=== PATIENT | male | born 1985 | race Caucasian/White ===

== ENCOUNTER 2016-12-19 21:29 | Emergency (ER) | payer BC ==
[~2016-12-19] VITALS: Ht 182.9 cm; Wt 81.6 kg
[2016-12-19] MEDS ORDERED: LORA1TAB PO (21:45)
[2016-12-19] MEDS ORDERED: SERT100T8 PO (21:45)
[2016-12-19] MEDS ORDERED: FLUT16SP22 NSEACH (21:45)
[2016-12-19] MEDS ORDERED: LORazepam INJ 2 MG/ML (ATIVAN) VIAL IVP ONE (21:45)
[2016-12-19] MEDS ORDERED: OMEP40CA36 PO (21:45)
[2016-12-19] MEDS ORDERED: LORA10TA7 PO (21:45)
[2016-12-19] MEDS ORDERED: RANI300C PO (21:45)
[2016-12-19 21:47] LABS: BASOPHILS % (AUTO) 1 % (0-10); EOSINOPHILS # (AUTO) 0.2 10^3/uL (0.0-0.3); EOSINOPHILS % (AUTO) 3 % (0-10); LYMPHOCYTES # (AUTO) 1.7 X 10^3 (1.0-4.0); LYMPHOCYTES % (AUTO) 28 % (12-44); MEAN CORPUSCULAR HEMOGLOBIN 29 PG (25-34); MEAN CORPUSCULAR HGB CONC 36 G/DL (32-36); MEAN CORPUSCULAR VOLUME 81 FL (80-99); MEAN PLATELET VOLUME 9.8 FL (7.4-10.4); MONOCYTES # (AUTO) 0.6 X 10^3 (0.0-1.0); MONOCYTES % (AUTO) 10 % (0-12); NEUTROPHILS # (AUTO) 3.6 X 10^3 (1.8-7.8); NEUTROPHILS % (AUTO) 58 % (42-75); PLATELET COUNT 169 10^3/uL (130-400); RED BLOOD COUNT 5.83 10^6/uL (4.35-5.85); RED CELL DISTRIBUTION WIDTH 13.1 % (10.0-14.5); WHITE BLOOD COUNT 6.2 10^3/uL (4.3-11.0)
--- NOTE | 2016-12-19 21:55 | ED General ---
General Chief Complaint: Respiratory Problems Stated Complaint: HIGH BLOOD PRESSURE/HIGH HEART RATE/DIZZINESS Nursing Triage Note: pt took 2 tramadol last night at approx 0200. he began feeling dizzy with heart racing et dizziness. recently had a reaction to bactrim. he is taking those meds for tooth pain. Nursing Sepsis Screen: No Definite Risk Source of Information: Patient Exam Limitations: No Limitations History of Present Illness Time Seen by Provider: 21:54 Initial Comments To ER with reports of high blood pressure, palpitations, heart racing, dizziness. This began about 2 a.m. last night when he took 2 tramadol for dental pain. He is currently on Zoloft 100 mg daily. Denies fevers or chills. He also feels anxious. Yet on the way Timing/Duration: 12-24 Hours Severity: Moderate Associated Systoms: Nausea/Vomiting Allergies and Home Medications Allergies Coded Allergies: acetazolamide (Unverified Adverse Reaction, Unknown, 12/19/16) risperidone (Unverified Adverse Reaction, Unknown, 12/19/16) sulfamethoxazole (Unverified Adverse Reaction, Unknown, 12/19/16) trimethoprim (Unverified Adverse Reaction, Unknown, 12/19/16) Home Medications Fluticasone Propionate 16 Gm [place].susp, 2 SPR NSEACH DAILY, #16 (Reported) Loratadine 10 Mg Tablet, 10 MG PO DAILY, (Reported) Lorazepam 1 Mg Tablet, 0.5 MG PO PRN, #30 (Reported) Omeprazole 40 Mg Capsule.dr, 40 MG PO DAILY, #30 (Reported) Ranitidine HCl 300 Mg Capsule, 300 MG PO BID PRN for reflux, #60 (Reported) Sertraline HCl 100 Mg Tablet, 100 MG PO DAILY, #30 (Reported) Constitutional: see HPI EENTM: see HPI Respiratory: see HPI Cardiovascular: no symptoms reported, palpitations Genitourinary: no symptoms reported Musculoskeletal: no symptoms reported Skin: no symptoms reported Psychiatric/Neurological: See HPI, Anxiety Hematologic/Lymphatic: No Symptoms Reported Immunological/Allergic: no symptoms reported Past Hhlwxlw-Glpfts-Hcjeji Hx Patient Social History Alcohol Use: Denies Use Recreational Drug Use: No Smoking Status: Never a Smoker Recent Foreign Travel: No Contact w/Someone Who Travel: No Recent Infectious Disease Expo: No Recent Hopitalizations: No Seasonal Allergies Seasonal Allergies: Yes Gastrointestinal Gastrointestinal Disorders: Gastroesophageal Reflux, Hiatal Hernia, Irritable Bowel Psychosocial Behavioral Health Disorders: Anxiety, Depression Physical Exam Vital Signs Vital Sign - Last 12Hours 12/19/16 21:36 Temp 98.4 Pulse 102 Resp 24 B/P (MAP) 176/114 Capillary Refill : Less Than 3 Seconds General Appearance: No Apparent Distress, WD/WN, Anxious Eyes: Bilateral Eye EOMI, Bilateral Eye Normal Inspection, Bilateral Eye PERRL HEENT: PERRL/EOMI, TMs Normal Neck: Full Range of Motion, Normal Inspection Respiratory: No Accessory Muscle Use, No Respiratory Distress Cardiovascular: Normal Peripheral Pulses, Tachycardia Gastrointestinal: Normal Bowel Sounds, Non Tender, Soft Neurologic/Psychiatric: Alert, Oriented x3, No Motor/Sensory Deficits, Other ( there is no tremor. There isbrisk bilateral patellar reflex. However patient states "I've always had fast reflexes") Skin: Normal Color, Warm/Dry Progress/Results/Core Measures Results/Orders Lab Results Laboratory Tests Test 12/19/16 21:37 12/19/16 22:12 Range/Units White Blood Count 6.2 4.3-11.0 10^3/uL Red Blood Count 5.83 4.35-5.85 10^6/uL Hemoglobin 17.0 13.3-17.7 G/DL Hematocrit 47 40-54 % Mean Corpuscular Volume 81 80-99 FL Mean Corpuscular Hemoglobin 29 25-34 PG Mean Corpuscular Hemoglobin Concent 36 32-36 G/DL Red Cell Distribution Width 13.1 10.0-14.5 % Platelet Count 169 130-400 10^3/uL Mean Platelet Volume 9.8 7.4-10.4 FL Neutrophils (%) (Auto) 58 42-75 % Lymphocytes (%) (Auto) 28 12-44 % Monocytes (%) (Auto) 10 0-12 % Eosinophils (%) (Auto) 3 0-10 % Basophils (%) (Auto) 1 0-10 % Neutrophils # (Auto) 3.6 1.8-7.8 X 10^3 Lymphocytes # (Auto) 1.7 1.0-4.0 X 10^3 Monocytes # (Auto) 0.6 0.0-1.0 X 10^3 Eosinophils # (Auto) 0.2 0.0-0.3 10^3/uL Basophils # (Auto) 0.0 0.0-0.1 10^3/uL Sodium Level 139 135-145 MMOL/L Potassium Level 3.7 3.6-5.0 MMOL/L Chloride Level 103 98-107 MMOL/L Carbon Dioxide Level 23 21-32 MMOL/L Anion Gap 13 5-14 MMOL/L Blood Urea Nitrogen 11 7-18 MG/DL Creatinine 0.99 0.60-1.30 MG/DL Estimat Glomerular Filtration Rate > 60 BUN/Creatinine Ratio 11 Glucose Level 112 H 70-105 MG/DL Calcium Level 9.7 8.5-10.1 MG/DL Total Bilirubin 0.7 0.1-1.0 MG/DL Aspartate Amino Transf (AST/SGOT) 18 5-34 U/L Alanine Aminotransferase (ALT/SGPT) 16 0-55 U/L Alkaline Phosphatase 87 40-136 U/L Total Protein 7.9 6.4-8.2 GM/DL Albumin 4.8 H 3.2-4.5 GM/DL Urine Color YELLOW Urine Clarity CLEAR Urine pH 6 5-9 Urine Specific [place] 1.010 L 1.016-1.022 Urine Protein NEGATIVE NEGATIVE Urine Glucose (UA) NEGATIVE NEGATIVE Urine Ketones NEGATIVE NEGATIVE Urine Nitrite NEGATIVE NEGATIVE Urine Bilirubin NEGATIVE NEGATIVE Urine Urobilinogen NORMAL NORMAL MG/DL Urine Leukocyte Esterase NEGATIVE NEGATIVE Urine RBC (Auto) NEGATIVE NEGATIVE Urine RBC NONE /HPF Urine WBC 0-2 /HPF Urine Crystals NONE /LPF Urine Bacteria NEGATIVE /HPF Urine Casts NONE /LPF Urine Mucus NEGATIVE /LPF Urine Culture Indicated NO My Orders Orders - KATT ZAFAR APRN Cbc With Automated Diff (12/19/16 21:41) Comprehensive Metabolic Panel (12/19/16 21:41) Ua Culture If Indicated (12/19/16 21:41) Saline Lock/Iv-Start (12/19/16 21:41) Lorazepam Injection (Ativan Injection) (12/19/16 21:45) Metoprolol Tartrate Injection (Lopressor (12/19/16 22:00) Medications Given in ED Current Medications Medications Dose Ordered Sig/Ko Route Start Time Stop Time Status Last Admin Dose Admin Lorazepam 0.5 mg ONCE ONCE IVP 12/19/16 21:45 12/19/16 21:46 DC 12/19/16 22:07 0.5 MG Vital Signs/I&O Vital Sign - Last 12Hours 12/19/16 21:36 Temp 98.4 Pulse 102 Resp 24 B/P (MAP) 176/114 Blood Pressure Mean: 134 Departure Communication Progress Notes 2311-patient is very anxious. He feels much better at this time. On arrival heart rate 113, blood pressure 170/100. Patient was given 0.5 mg of IV lorazepam and he states that he feels better at this time. Heart rate is 90 sinus, a pressure 134/74. He does not have tremor, diaphoresis, myoclonus, hyperreflexia. Mental status is normal. By definition he does not have serotonin syndrome in the acute onset of this would exclude neuroleptic malignant syndrome from the differential. Impression Impression: Primary Impression: Medication adverse effect Additional Impression: Anxiety Disposition: 01 HOME, SELF-CARE Condition: Stable Departure-Patient Inst. Decision time for Depature: 23:12 Referrals: HEMANT ARMSTRONG DO (PCP/Family) Primary Care Physician Patient Instructions: NO INSTRUCTIONS GIVEN Add. Discharge Instructions: 1. Return to ER for any concerns 2. Follow-up with Dr. Armstrong next week 3. All discharge instructions reviewed with patient and/or family. Voiced understanding. Copy Copies To 1: HEMANT ARMSTRONG PETER J APRN Dec 19, 2016 21:55
[2016-12-19] MEDS ORDERED: meTOprolol 5 MG/5 ML (LOPRESSOR) VIAL IV ONE (22:00)
[2016-12-19 22:01] LABS: ALANINE AMINOTRANSFERASE 16 U/L (0-55); ALBUMIN 4.8 GM/DL (3.2-4.5); ANION GAP 13 MMOL/L (5-14); ASPARTATE AMINO TRANSFERASE 18 U/L (5-34); BILIRUBIN,TOTAL 0.7 MG/DL (0.1-1.0); BLOOD UREA NITROGEN 11 MG/DL (7-18); BUN/CREATININE RATIO 11; CALCIUM 9.7 MG/DL (8.5-10.1); CARBON DIOXIDE 23 MMOL/L (21-32); CHLORIDE 103 MMOL/L (98-107); CREATININE SERUM 0.99 MG/DL (0.60-1.30); GFR ESTIMATED > 60; GLUCOSE 112 MG/DL (70-105); POTASSIUM 3.7 MMOL/L (3.6-5.0); SODIUM 139 MMOL/L (135-145); TOTAL PROTEIN 7.9 GM/DL (6.4-8.2)
[2016-12-19 22:26] LABS: BILIRUBIN,URINE NEGATIVE (NEGATIVE); KETONES,URINE NEGATIVE (NEGATIVE); LEUKOCYTE ESTERASE ,URINE NEGATIVE (NEGATIVE); NITRITE,URINE NEGATIVE (NEGATIVE); PH,URINE 6 (5-9); PROTEIN,URINE NEGATIVE (NEGATIVE); UROBILINOGEN,URINE NORMAL (NORMAL)
[2016-12-19 22:54] LABS: WBC,URINE 0-2 /HPF
[2016-12-19 23:20] VITALS: BP 132/79
--- OUTSIDE RECORDS SUMMARY | 2016-12-20 00:37 | XMS REPORT ---
Author Author [facility] Organization [facility] Address Unknown Phone Unavailable Care Team Providers Care Health Education Assistant Name Role Phone Devorah Caceres PCP Encounter [facility] [id number] Date(s): 12/14/16 - [facility]/15/16 [facility] [address] [address] Discharge Disposition: Home Attending Physician: Francesca Matta APRN Admitting Physician: Francesca Matta APRN Referring Physician: Devorah Caceres DO Non-Staff Vital Signs No data available for this section Problem List Condition Effective Dates Status Health Status Informant Anxiety Active disorder(Confirmed) Allergies, Adverse Reactions, Alerts Substance Reaction Severity Status acetaZOLAMIDE Active risperidone Drug-induced dystonia Active Medications No Known Medications Results No data available for this section Immunizations No data available for this section Procedures No data available for this section Social History No data available for this section Assessment and Plan No data available for this section
--- OUTSIDE RECORDS SUMMARY | 2016-12-20 00:37 | XMS REPORT | Continuity of Care Document ---
Author Author [employer] Organization [employer] Address Unknown Phone Unavailable Care Team Providers Care Secretary Book Keeper Name Role Phone [employer] Unavailable Unavailable Problems Problem Status Onset Date Classification Date Reported Comments Source Anxiety disorder (disorder) Active Problem 01/18/2014 [facility], [facility]. Medications Medication Details Route Status Patient Instructions Ordering Provider Order Date Source No Known Medications No known medications Active [facility] Allergies, Adverse Reactions, Alerts Substance Category Reaction Severity Reaction type Status Date Reported Comments Source Acetazolamide Assertion Drug allergy [facility], [facility]. Risperidone Assertion Drug- induced dystonia Drug allergy [facility] Immunizations Immunization Date Given Site Status Last Updated Comments Source No data available for this section No data available for this section [facility], [facility]. Results Vital Signs Encounters Location Location Details Encounter Type Encounter Number Reason For Visit Attending Provider ADM Date DC Date Status Source Urgent Care [facility] [id number] . URGENT CARE TAFT 01/12/2014 01/13/2014 [facility] [id number] . URGENT CARE TAFT 01/14/2014 01/15/2014 [facility], [facility]. Emergency [id number] Francesca Matta 12/14/2016 12/16/2016 [facility] Procedures Procedure Code Date Perfomer Comments Source No data available for this section [facility]. Plan of Care Social History Assessment and Plan Family History Value Date Source Advance Directives Order Name Results Value Date Source
--- OUTSIDE RECORDS SUMMARY | 2016-12-20 00:38 | XMS REPORT ---
Author Author RAIZA PURVIS Organization [employer] Address Unknown Phone Unavailable Care Team Providers Care Nuclear Pharmacist Name Role Phone RAIZA PURVIS CP Unavailable Allergies, Adverse Reactions, Alerts Substance Reaction Event Type Risperdal Info Not Available Drug Allergy Problems Problem Type Condition Code Onset Dates Condition Status Assessment Exposure to head lice Z20.7 Active Assessment History of back pain Z87.39 Active Problem Need for prophylactic vaccination and inoculation, Influenza V04.81 Active Medications Medication Code System Code Instructions Start Date End Date Status Dosage Ranitidine HCl [facility] [address]-40 300 MG Orally Once a day 1 capsule as needed Omeprazole [facility] [address]-51 40 MG Orally Once a day 1 capsule Claritin [facility] [address]-59 10 MG Orally Once a day 1 tablet Flonase Allergy Relief [facility] [address]-17 50 MCG/ACT Nasally Once a day 1 spray in each nostril Zoloft [facility] [address]-82 100 MG Orally Once a day 1 tablet Procedures Procedure Coding System Code Date Office Visit, Est Pt., Level 3 CPT-4 35475 December 28, 2015 Vital Signs Date/Time: December 28, 2015 Cardiac Monitoring Heart Rate 76 bpm Weight 189.4 lbs Height 72 in Blood Pressure Diastolic 84 mmHg Blood Pressure Systolic 120 mmHg Results No Known Results Summary Purpose [employer] Submission
--- OUTSIDE RECORDS SUMMARY | 2016-12-20 00:38 | XMS REPORT | Clinical Summary ---
Author Author User, [employer] Organization Devorah Caceres DO, FACP Address Unknown Phone Allergies, Adverse Reactions, Alerts Allergy Name Reaction Description Start Date Severity Status Provider ACETAZOLAMIDE tingling, shaking placed on that for prevention altitude sickness Critical Active Devorah Caceres RISPERDAL dystonic reaction in 7th grade given for depression Critical Active Devorah Caceres Conditions or Problems Problem Name Problem Code Onset Date Status Entry Date Provider Comment Standard Description Annotate DEPRESSION 311 Active Devorah Caceres Depressive disorder, not elsewhere classified ANXIETY 300.00 Active Devorah Caceres Anxiety state, unspecified GERD 530.81 Active Devorah Caceres Esophageal reflux RHINITIS, ALLERGIC NOS 477.9 Active Devorah Caceres Allergic rhinitis, cause unspecified HYPERGLYCEMIA, MILD 790.6 Active Devorah Caceres Other abnormal blood chemistry HEALTH SCREENING V70.0 Active Devorah Caceres Routine general medical examination at a health care facility PALPITATIONS, RECURRENT 785.1 Active Devorah Caceres Palpitations Medication List Medication Instructions Start Date Stop Date Generic Name NDC Status Provider Patient Instruction VITAMIN B-12 1000 MCG TABS 1 PO daily CYANOCOBALAMIN 22301228303 Active Devorah Caceres ZANTAC 150 MG TABS 2 PO BID RANITIDINE HCL 74587396619 Active Devorah Caceres DRYSOL 20 % SOLN APPLY NEEDED TO UNDERARMS ALUMINUM CHLORIDE 47935679372 Active Devorah Caceres FLUTICASONE PROPIONATE 50 MCG/ACT SUSP 2 SPRAYS EACH NOSTRI DAILY FLUTICASONE PROPIONATE 97347431295 Active Devorah Caceres CLARITIN 10 MG TABS 1 PO DAILY PRN LORATADINE 54868843880 Active Devorah Caceres PRILOSEC 40 MG CPDR 1 PO DAILY OMEPRAZOLE 98302789887 Active Devorah Caceres ATIVAN 1 MG TABS 1 PO DAILY PRN FOR ANXIETY LORAZEPAM 81976919252 Active Devorah Caceres BUSPIRONE HCL 10 MG TABS 1 PO BID BUSPIRONE HCL 25239191637 Active Devorah Caceres ZOLOFT 100 MG TABS 1 AND A HALF TABS DAILY TO TOTAL 150MG SERTRALINE HCL 90154991012 Active Devorah Caceres Vital Signs Date Name Value Unit Range Description blood pressure, diastolic - 8462-4 78 mm[Hg] BP burden blood pressure, systolic - 8480-6 106 mm[Hg] BP sys pulse rate E&M - 8867-4 54 /min Heart rate respiratory rate E&M - 9279-1 14 /min Resp rate weight E&M - 3141-9 180 [lb_av] Weight Measured blood pressure, diastolic - 8462-4 68 mm[Hg] BP burden blood pressure, systolic - 8480-6 118 mm[Hg] BP sys height E&M - 8302-2 72 [in_us] Bdy height pulse rate E&M - 8867-4 80 /min Heart rate respiratory rate E&M - 9279-1 14 /min Resp rate weight E&M - 3141-9 175 [lb_av] Weight Measured Diagnostic Results Date Name Value Unit Range Description Clinical Lists Update: CBC,CMP,FLP,TSH,HGA1C,FERRITIN - Chemistry Estimated Glomerular Filtration Rate (calc) 97 mL/min/1.73m2 glucose, plasma fasting 104 mg/dL albumin, serum 4.7 g/dL alkaline phosphatase, serum 84 U/L urea nitrogen, blood 15 mg/dL calcium, serum 9.4 mg/dL chloride, serum 102 mmol/L cholesterol, serum 192 mg/dL cholesterol/HDL ratio, serum, percent 4.6 anion gap, serum 12 sodium, serum 139 mmol/L triglyceride, serum, fasting 139 mg/dL bilirubin, serum, total 0.6 mg/dL alanine aminotransferase (SGPT), serum 20 U/L aspartate aminotransferase (SGOT), serum 17 U/L protein, total, serum 7.2 g/dL potassium, serum 3.8 mmol/L LDL cholesterol, serum 122 mg/dL thyroid stimulating hormone, serum 1.03 u[iU]/mL hemoglobin A1C, blood, as % of total hemoglobin 5.2 % HDL cholesterol, serum 42.0 mg/dL ferritin, serum 57.8 ng/mL creatinine, serum 1.0 mg/dL carbon dioxide, venous blood 29.0 mmol/L Clinical Lists Update: CBC,CMP,FLP,TSH,HGA1C,FERRITIN - Hematology mean corpuscular volume, RBC 89 fL red blood cell distribution width 13.3 % hemoglobin, blood 16.6 g/dL platelet count 176 10*3/mm3 erythrocyte (RBC) count 5.63 10*6/mm3 leukocyte count, blood 5.6 10*3/mm3 hematocrit, blood 50 % Encounters Code Encounter Date Provider Facility CPT-49589 Ofc Vst, Est Level IV 16:51:07 CDT Devorah Delicia [facility] Procedures Code Procedure Name Date Entry Date Standard Description CPT-02789 Manju, Bo, (18-39) 19:45:17 RN TELEMETRY
--- OUTSIDE RECORDS SUMMARY | 2016-12-20 00:38 | XMS REPORT | Clinical Summary ---
Author Author User, [employer] Organization Devorah Caceres DO, FACP Address Unknown [...] 1000 MCG TABS 1 PO daily CYANOCOBALAMIN 95697040716 Active Devorah Caceres ZANTAC 150 MG TABS 2 PO BID RANITIDINE HCL 07890343877 Active Devorah Caceres DRYSOL 20 % SOLN APPLY NEEDED TO UNDERARMS ALUMINUM CHLORIDE 98208980187 Active Devorah Caceres FLUTICASONE PROPIONATE 50 MCG/ACT SUSP 2 SPRAYS EACH NOSTRI DAILY FLUTICASONE PROPIONATE 08247301970 Active Devorah Caceres CLARITIN 10 MG TABS 1 PO DAILY PRN LORATADINE 46382256398 Active Devorah Caceres PRILOSEC 40 MG CPDR 1 PO DAILY OMEPRAZOLE 61944813755 Active Devorah Caceres ATIVAN 1 MG TABS 1 PO DAILY PRN FOR ANXIETY LORAZEPAM 76299202489 Active Devorah Caceres BUSPIRONE HCL 10 MG TABS 1 PO BID BUSPIRONE HCL 37798441687 Active Devorah Caceres ZOLOFT 100 MG TABS 1 AND A HALF TABS DAILY TO TOTAL 150MG SERTRALINE HCL 97999865111 Active Devorah Caceres Vital Signs Date Name [...] % Encounters Code Encounter Date Provider Facility CPT-70556 Ofc Vst, Est Level IV 16:51:07 CDT Devorah Delicia [facility] Procedures Code Procedure Name Date Entry Date Standard Description CPT-40339 Manju, Bo, (18-39) 19:45:17 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
--- OUTSIDE RECORDS SUMMARY | 2016-12-20 00:38 | XMS REPORT | Clinical Summary ---
Author Author User, [employer] Organization Devorah Caceres DO, FACP Address Unknown [...] medical examination at a health care facility Medication List Medication Instructions Start Date Stop Date Generic Name NDC Status Provider Patient Instruction VITAMIN B-12 1000 MCG TABS 1 PO daily CYANOCOBALAMIN 25073103094 Active Devorah Caceres ZANTAC 150 MG TABS 2 PO BID RANITIDINE HCL 70571567802 Active Devorah Caceres DRYSOL 20 % SOLN APPLY NEEDED TO UNDERARMS ALUMINUM CHLORIDE 64069508437 Active Devorah Caceres FLUTICASONE PROPIONATE 50 MCG/ACT SUSP 2 SPRAYS EACH NOSTRI DAILY FLUTICASONE PROPIONATE 27266139034 Active Devorah Caceres CLARITIN 10 MG TABS 1 PO DAILY PRN LORATADINE 42143214572 Active Devorah Caceres PRILOSEC 40 MG CPDR 1 PO DAILY OMEPRAZOLE 38197526310 Active Devorah Caceres ATIVAN 1 MG TABS 1 PO DAILY PRN FOR ANXIETY LORAZEPAM 52131323480 Active Devorah Caceres BUSPIRONE HCL 10 MG TABS 1 PO BID BUSPIRONE HCL 64234575726 Active Devorah Caceres ZOLOFT 100 MG TABS 1 AND A HALF TABS DAILY TO TOTAL 150MG SERTRALINE HCL 02139583593 Active Devorah Caceres Vital Signs Date Name Value Unit Range Description blood pressure, diastolic - 8462-4 68 mm[Hg] [...] blood 5.6 10*3/mm3 hematocrit, blood 50 % Procedures Code Procedure Name Date Entry Date Standard Description CPT-11322 Bo Nunes, (18-39) 19:45:17 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
--- OUTSIDE RECORDS SUMMARY | 2016-12-20 00:38 | XMS REPORT | Clinical Summary ---
Author Author User, [employer] Organization Devorah Caceres DO, FACP Address Unknown [...] 1000 MCG TABS 1 PO daily CYANOCOBALAMIN 71968451501 Active Devorah Caceres ZANTAC 150 MG TABS 2 PO BID RANITIDINE HCL 62081122611 Active Devorah Caceres DRYSOL 20 % SOLN APPLY NEEDED TO UNDERARMS ALUMINUM CHLORIDE 49323637850 Active Devorah Caceres FLUTICASONE PROPIONATE 50 MCG/ACT SUSP 2 SPRAYS EACH NOSTRI DAILY FLUTICASONE PROPIONATE 15773369520 Active Devorah Caceres CLARITIN 10 MG TABS 1 PO DAILY PRN LORATADINE 06953308636 Active Devorah Caceres PRILOSEC 40 MG CPDR 1 PO DAILY OMEPRAZOLE 94777391256 Active Devorah Caceres ATIVAN 1 MG TABS 1 PO DAILY PRN FOR ANXIETY LORAZEPAM 01592130558 Active Devorah Caceres BUSPIRONE HCL 10 MG TABS 1 PO BID BUSPIRONE HCL 13599882004 Active Devorah Caceres ZOLOFT 100 MG TABS 1 AND A HALF TABS DAILY TO TOTAL 150MG SERTRALINE HCL 68686334721 Active Devorah Caceres Vital Signs Date Name [...] Procedure Name Date Entry Date Standard Description CPT-45843 Bo Nunes, (18-39) 19:45:17 COBBLER SOLE
--- OUTSIDE RECORDS SUMMARY | 2016-12-20 00:38 | XMS REPORT | Continuity of Care Document ---
Author Author [facility] Address Unknown Phone Unavailable Allergies Medications Problems Date Dx Coded Attending Type Code Diagnosis Diagnosed By 04/21/2014 SHAQUILLE BECKWITH APRN V04.81 FLU SHOT Procedures Results Encounters ACCT No. Visit Date/Time Discharge Status Pt. Type Provider Facility Loc./Unit Complaint [id number] 04/21/2014 13:03:00 04/21/2014 23: 59:59 CLS Outpatient SHAQUILLE BECKWITH APRN
--- OUTSIDE RECORDS SUMMARY | 2016-12-20 00:39 | XMS REPORT | Clinical Summary ---
Author Author User, [employer] Organization Devorah Caceres DO, FACP Address Unknown [...] Caceres Anxiety state, unspecified GERD 530.81 Active Devorha Caceres Esophageal reflux RHINITIS, ALLERGIC NOS 477.9 Active Devorah Caceres Allergic rhinitis, cause unspecified HYPERGLYCEMIA, MILD 790.6 Active Devorah Caceres Other abnormal blood chemistry HEALTH SCREENING V70.0 Active Devorah Caceres Routine general medical examination at a health care facility Medication List Medication Instructions Start Date Stop Date Generic Name NDC Status Provider Patient Instruction VITAMIN B-12 1000 MCG TABS 1 PO daily CYANOCOBALAMIN 25108211971 Active Devorah Caceres ZANTAC 150 MG TABS 2 PO BID RANITIDINE HCL 42136336386 Active Devorah Caceres DRYSOL 20 % SOLN APPLY NEEDED TO UNDERARMS ALUMINUM CHLORIDE 81249065873 Active Devorah Caceres FLUTICASONE PROPIONATE 50 MCG/ACT SUSP 2 SPRAYS EACH NOSTRI DAILY FLUTICASONE PROPIONATE 14949623527 Active Devorah Caceres CLARITIN 10 MG TABS 1 PO DAILY PRN LORATADINE 21190987100 Active Devorah Caceres PRILOSEC 40 MG CPDR 1 PO DAILY OMEPRAZOLE 32108917604 Active Devorah Caceres ATIVAN 1 MG TABS 1 PO DAILY PRN FOR ANXIETY LORAZEPAM 67054259654 Active Devorah Caceres BUSPIRONE HCL 10 MG TABS 1 PO BID BUSPIRONE HCL 74681523368 Active Devorah Caceres ZOLOFT 100 MG TABS 1 AND A HALF TABS DAILY TO TOTAL 150MG SERTRALINE HCL 64781673853 Active Devorah Caceres Vital Signs Date Name [...] Procedure Name Date Entry Date Standard Description CPT-19734 Bo Nunes, (18-39) 19:45:17 CLUB CONCIERGE
--- OUTSIDE RECORDS SUMMARY | 2016-12-20 00:39 | XMS REPORT | Clinical Summary ---
Author Author User, [employer] Organization Devorah Caceres DO, FACP Address Unknown [...] 1000 MCG TABS 1 PO daily CYANOCOBALAMIN 13565202493 Active Devorah Caceres ZANTAC 150 MG TABS 2 PO BID RANITIDINE HCL 64699677517 Active Devorah Caceres DRYSOL 20 % SOLN APPLY NEEDED TO UNDERARMS ALUMINUM CHLORIDE 81277189296 Active Devorah Caceres FLUTICASONE PROPIONATE 50 MCG/ACT SUSP 2 SPRAYS EACH NOSTRI DAILY FLUTICASONE PROPIONATE 17512299953 Active Devorah Caceres CLARITIN 10 MG TABS 1 PO DAILY PRN LORATADINE 48190125910 Active Devorah Caceres PRILOSEC 40 MG CPDR 1 PO DAILY OMEPRAZOLE 93492265181 Active Devorah Caceres ATIVAN 1 MG TABS 1 PO DAILY PRN FOR ANXIETY LORAZEPAM 67896742852 Active Devorah Caceres BUSPIRONE HCL 10 MG TABS 1 PO BID BUSPIRONE HCL 61873976180 Active Devorah Caceres ZOLOFT 100 MG TABS 1 AND A HALF TABS DAILY TO TOTAL 150MG SERTRALINE HCL 35469023384 Active Devorah Caceres Vital Signs Date Name [...] Procedure Name Date Entry Date Standard Description CPT-38885 Bo Nunes, (18-39) 19:45:17 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
--- OUTSIDE RECORDS SUMMARY | 2016-12-20 00:39 | XMS REPORT | Clinical Summary ---
Author Author User, [employer] Organization Devorah Caceres DO, FACP Address Unknown [...] 1000 MCG TABS 1 PO daily CYANOCOBALAMIN 52687949956 Active Devorah Caceres ZANTAC 150 MG TABS 2 PO BID RANITIDINE HCL 66581214038 Active Devorah Caceres DRYSOL 20 % SOLN APPLY NEEDED TO UNDERARMS ALUMINUM CHLORIDE 54443215343 Active Devorah Caceres FLUTICASONE PROPIONATE 50 MCG/ACT SUSP 2 SPRAYS EACH NOSTRI DAILY FLUTICASONE PROPIONATE 65041611349 Active Devorah Caceres CLARITIN 10 MG TABS 1 PO DAILY PRN LORATADINE 63837968106 Active Devorah Caceres PRILOSEC 40 MG CPDR 1 PO DAILY OMEPRAZOLE 35225428476 Active Devorah Caceres ATIVAN 1 MG TABS 1 PO DAILY PRN FOR ANXIETY LORAZEPAM 17293010404 Active Devorah Caceres BUSPIRONE HCL 10 MG TABS 1 PO BID BUSPIRONE HCL 30160630441 Active Devorah Caceres ZOLOFT 100 MG TABS 1 AND A HALF TABS DAILY TO TOTAL 150MG SERTRALINE HCL 14866160817 Active Devorah Caceres Vital Signs Date Name [...] Procedure Name Date Entry Date Standard Description [id number] Bo Nunes, (16[birth year]) 19:45:17 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
== END 2016-12-19 23:20 | disposition home or self-care (01) ==
LOC: EDUNIT# 21:29 → ER 21:32
DX: R42 Dizziness and giddiness (principal); F41.9 Anxiety disorder, unspecified; T40.4X5A Adverse effect of other synthetic narcotics, initial encounter
CPT/HCPCS: 36415; 80053; 81000; 85025; 96374

== ENCOUNTER → 2016-12-25 | Outpatient (CLI) | payer BC ==
[~2016-12-25] MED LIST: FLUT16SP22 NSEACH; LORA10TA7 PO; LORA1TAB PO; OMEP40CA36 PO; RANI300C PO; SERT100T8 PO
--- NOTE | 2016-12-25 11:24 | Diagnostic Imaging Report ---
PROCEDURE: CT abdomen and pelvis without contrast. TECHNIQUE: Multiple contiguous axial images were obtained through the abdomen and pelvis without the use of intravenous contrast. INDICATION: Left flank pain. FINDINGS: The lung bases appear clear. The liver, the spleen, the pancreas, and the adrenal glands appear unremarkable. The gallbladder demonstrates no calcified stones or wall thickening. The abdominal aorta is normal in caliber. No para-aortic significantly enlarged lymph node is seen. The kidneys demonstrate no hydronephrosis. Pelvic calcifications appear to be along vessels with no definite urinary tract stone identified. The prostate is near the upper limits of normal in size, at 4.7 cm in transverse dimension. The appendix is normal. No bowel obstruction. There is a tiny fat-containing umbilical hernia. The osseous structures appear grossly unremarkable. IMPRESSION: Tiny fat-containing umbilical hernia. No urinary tract stones or hydronephrosis seen. Dictated by: Dictated on workstation # [id number]
== END ==
LOC: RAD 10:45
PROVIDERS: ATTEND Urology
DX: K42.9 Umbilical hernia without obstruction or gangrene (principal)
CPT/HCPCS: 74176

== ENCOUNTER 2017-01-18 13:13 | Emergency (ER) | payer BC ==
[~2017-01-18] VITALS: Ht 185.4 cm; Wt 77.1 kg
--- NOTE | 2017-01-18 14:20 | ED General ---
General Chief Complaint: General Problems/Pain Stated Complaint: DIZZINESS, LOW BP Nursing Triage Note: c/o feeling dizzy and weak. Pt conerned about possible Zyrtec complications. Nursing Sepsis Screen: No Definite Risk Source of Information: Patient Exam Limitations: No Limitations History of Present Illness Time Seen by Provider: 13:56 Initial Comments Patient presents to ER by private conveyance with very nondescript chief complaint of feeling dizzy which she describes as feeling off not being pulled to either direction not having the room spinning and not feeling near syncopal. He states that 2 days ago this started when he took a single tablet of Zyrtec and then felt, drowsy so he slept most the day. The following day he woke up and was still drowsy. He attributes his sensation to that. He didn't Zyrtec is having congestion and nasal discharge. He is not having any fevers malaise chills cough short of breath chest pain abdominal pain diarrhea or constipation. He does have irritable bowel syndrome. He also has recently been worked up with a CAT scan of his abdomen for non-descript abdominal pain. Patient states he checked his pressure at home and it was 105/60. He checked his sats on his iPhone and found it to be 92-94%. This worried him as he felt this was low. So he presented here. Allergies and Home Medications Allergies Coded Allergies: acetazolamide (Unverified Adverse Reaction, Unknown, 12/19/16) risperidone (Unverified Adverse Reaction, Unknown, 12/19/16) sulfamethoxazole (Unverified Adverse Reaction, Unknown, 12/19/16) trimethoprim (Unverified Adverse Reaction, Unknown, 12/19/16) Home Medications Fluticasone Propionate 16 Gm [place].susp, 2 SPR NSEACH DAILY, #16 (Reported) Loratadine 10 Mg Tablet, 10 MG PO DAILY, (Reported) Lorazepam 1 Mg Tablet, 0.5 MG PO PRN, #30 (Reported) Omeprazole 40 Mg Capsule.dr, 40 MG PO DAILY, #30 (Reported) Ranitidine HCl 300 Mg Capsule, 300 MG PO BID PRN for reflux, #60 (Reported) Sertraline HCl 100 Mg Tablet, 100 MG PO DAILY, #30 (Reported) Constitutional: see HPI, No chills, No diaphoresis, dizziness, No fever, malaise EENTM: nose congestion, No ear pain, No epistaxis, No eye pain Respiratory: No cough, No short of breath Cardiovascular: No chest pain, No palpitations, No syncope, No vascular heart diseas Gastrointestinal: No abdominal pain, No constipation, No diarrhea, No nausea, No vomiting Genitourinary: No discharge, No dysuria, No frequency Musculoskeletal: No back pain, No joint pain Skin: No pruritus, No rash Psychiatric/Neurological: Anxiety, Depressed, Denies Headache, Denies Numbness Past Lnaqrpk-Fvjcol-Alkmjy Hx Patient Social History Alcohol Use: Denies Use Recreational Drug Use: No Smoking Status: Never a Smoker Recent Foreign Travel: No Contact w/Someone Who Travel: No Recent Infectious Disease Expo: No Recent Hopitalizations: No Seasonal Allergies Seasonal Allergies: Yes Gastrointestinal Gastrointestinal Disorders: Gastroesophageal Reflux, Hiatal Hernia, Irritable Bowel Psychosocial Behavioral Health Disorders: Anxiety, Depression Physical Exam Vital Signs Vital Sign - Last 12Hours 01/18/17 13:35 Temp 97.5 Pulse 70 Resp 16 B/P (MAP) 142/70 O2 Delivery Room Air Capillary Refill : Less Than 3 Seconds General Appearance: No Apparent Distress, WD/WN, Anxious Eyes: Bilateral Eye EOMI, Bilateral Eye Normal Inspection, Bilateral Eye PERRL HEENT: PERRL/EOMI, Normal ENT Inspection, Pharynx Normal, TM Abnormal (R) ( mucoid effusion without bulging or retraction) Neck: Normal Inspection, Non Tender, Supple Respiratory: Chest Non Tender, Lungs Clear, Normal Breath Sounds, No Accessory Muscle Use Cardiovascular: Regular Rate, Rhythm, No Edema, No Gallop, No Murmur, Normal Peripheral Pulses Gastrointestinal: Normal Bowel Sounds, Non Tender, Soft Back: Normal Inspection, No CVA Tenderness, No Vertebral Tenderness Extremity: Normal Capillary Refill, No Pedal Edema Neurologic/Psychiatric: Alert, Oriented x3 Skin: Normal Color, Warm/Dry Lymphatic: No Adenopathy Progress/Results/Core Measures Results/Orders Vital Signs/I&O Vital Sign - Last 12Hours 01/18/17 13:35 Temp 97.5 Pulse 70 Resp 16 B/P (MAP) 142/70 O2 Delivery Room Air Blood Pressure Mean: 94 Progress Note : Time: 18:53 Progress Note Discussed at length the patient's long list of nebulous symptoms and his history of recent workup. There is no focal complaints and his dizziness does not seem to relate to vertigo nor is it popping positive for his orthostatic hypotensive vital signs. However he may explain some of his lower end of normal blood pressure and higher end of normal heart rate by being dehydrated. Offered him IV fluids which he declined. Discussed the value of doing any blood work without any focus to follow. A basic workup has been done in the recent weeks by his primary care physician and he said he would rather just follow up with his primary care physician to have this further worked up as needed. We discussed treatment of his otitis media effusion as well as drinking plenty of fluids and avoiding caffeine. I also gave good return instructions. Departure Impression Impression: Primary Impression: Fatigue Qualified Codes: R53.83 - Other fatigue Additional Impressions: Otitis media with effusion Qualified Codes: H65.91 - Unspecified nonsuppurative otitis media, right ear Dehydration Disposition: 01 HOME, SELF-CARE Condition: Stable Departure-Patient Inst. Decision time for Depature: 14:20 Referrals: HEMANT ARMSTRONG DO (PCP/Family) Primary Care Physician Patient Instructions: Serous Otitis Media (DC) Add. Discharge Instructions: For the otitis media effusion go ahead and double up on your Flonase for the next 2 weeks. Drink copious amounts of fluids and it is not getting better or worsening could present to your PCP or return to the ER. For your dehydration I suggest taking half strength Gatorade 2-4 quarts of and drinking copious amounts of fluids to you are urinating frequently and your symptoms are abating. It may take a day or 2 to begin to feel better. If you have new or worsening symptoms such as weakness in your limbs or inability to walk or dropping things and apparently or chest pain or shortness of breath or nausea then you should return to the ER otherwise plan on following with your PCP in the next 1-2 weeks. All discharge instructions reviewed with patient and/or family. Voiced understanding. Copy Copies To 1: HEMANT ARMSTRONG TITUS J Jan 18, 2017 14:20
[2017-01-18 14:30] VITALS: BP 128/82
== END 2017-01-18 14:30 | disposition home or self-care (01) ==
LOC: EDUNIT# 13:13 → ER 13:14
DX: H65.90 Unspecified nonsuppurative otitis media, unspecified ear (principal); E86.0 Dehydration; F41.9 Anxiety disorder, unspecified; F32.9 Major depressive disorder, single episode, unspecified; K21.9 Gastro-esophageal reflux disease without esophagitis
CPT/HCPCS: 99281

== ENCOUNTER 2018-06-10 03:48 | Emergency (ER) | payer BC ==
[~2018-06-10] VITALS: Ht 182.9 cm; Wt 79.4 kg
--- OUTSIDE RECORDS SUMMARY | 2018-06-10 03:53 | XMS REPORT | Continuity of Care Document ---
Author Author On License Of [facility] Address Unknown Phone Unavailable Allergies Active Description Code Type Severity Reaction Onset Reported/Identified Relationship to Patient Clinical Status Yes acetazolamide [id number] Drug Allergy Unknown N/A 12/19/2016 Yes risperidone [id number] Drug Allergy Unknown N/A 12/19/2016 Yes sulfamethoxazole [id number] Drug Allergy Unknown N/A 12/19/2016 Yes trimethoprim [id number] Drug Allergy Unknown N/A 12/19/2016 Medications There is no data. Problems Date Dx Coded Attending Type Code Diagnosis Diagnosed By 04/21/2014 SHAQUILLE BECKWITH APRN V04.81 FLU SHOT 02/09/2016 TAI CAMARENA MD Ot F41.8 OTHER SPECIFIED ANXIETY DISORDERS 02/09/2016 TAI CAMARENA MD Ot K21.9 GASTRO-ESOPHAGEAL REFLUX DISEASE WITHOUT 02/09/2016 TAI CAMARENA MD Ot R00.2 PALPITATIONS 02/09/2016 TAI CAMARENA MD Ot R07.9 CHEST PAIN, UNSPECIFIED 02/12/2016 TAI CAMARENA MD Ot F41.8 OTHER SPECIFIED ANXIETY DISORDERS 02/12/2016 TAI CAMARENA MD Ot K21.9 GASTRO-ESOPHAGEAL REFLUX DISEASE WITHOUT 02/12/2016 TAI CAMARENA MD Ot R00.2 PALPITATIONS 02/12/2016 TAI CAMARENA MD Ot R07.9 CHEST PAIN, UNSPECIFIED 02/22/2016 TAI CAMARENA MD Ot F41.8 OTHER SPECIFIED ANXIETY DISORDERS 02/22/2016 TAI CAMARENA MD Ot K21.9 GASTRO-ESOPHAGEAL REFLUX DISEASE WITHOUT 02/22/2016 TAI CAMARENA MD Ot R00.2 PALPITATIONS 02/22/2016 TAI CAMARENA MD Ot R07.9 CHEST PAIN, UNSPECIFIED 12/19/2016 TAI CAMARENA MD Ot F41.8 OTHER SPECIFIED ANXIETY DISORDERS 12/19/2016 TAI CAMARENA MD Ot K21.9 GASTRO-ESOPHAGEAL REFLUX DISEASE WITHOUT 12/19/2016 TAI CAMARENA MD Ot R00.2 PALPITATIONS 12/19/2016 TIA CAMARENA MD Ot R07.9 CHEST PAIN, UNSPECIFIED 12/19/2016 KATT ZAFAR APRN Ot F41.9 ANXIETY DISORDER, UNSPECIFIED 12/19/2016 KATT ZAFAR GRID INSPECTOR Ot R42 DIZZINESS AND GIDDINESS 12/19/2016 KATT ZAFAR GRID INSPECTOR Ot T40.4X5A ADVERSE EFFECT OF OTHER SYNTHETIC NARCOT 12/31/2016 CHRISTINE CLIFFORD, MADDY Macedo Ot K42.9 UMBILICAL HERNIA WITHOUT OBSTRUCTION OR 01/18/2017 PHOEBE MASON MD Ot E86.0 DEHYDRATION 01/18/2017 PHOEBE MASON MD Ot F32.9 MAJOR DEPRESSIVE DISORDER, SINGLE EPISOD 01/18/2017 PHOEBE MASON MD Ot F41.9 ANXIETY DISORDER, UNSPECIFIED 01/18/2017 PHOEBE MASON MD Ot H65.91 UNSPECIFIED NONSUPPURATIVE OTITIS MEDIA, 01/18/2017 PHOEBE MASON MD Ot K21.9 GASTRO-ESOPHAGEAL REFLUX DISEASE WITHOUT 01/18/2017 PHOEBE MASON MD Ot R42 DIZZINESS AND GIDDINESS 01/29/2017 MADDY KING MD Ot K42.9 UMBILICAL HERNIA WITHOUT OBSTRUCTION OR 04/02/2017 PHOEBE MSAON MD Ot E86.0 DEHYDRATION 04/02/2017 PHOEBE MASON MD Ot F32.9 MAJOR DEPRESSIVE DISORDER, SINGLE EPISOD 04/02/2017 PHOEBE MASON MD Ot F41.9 ANXIETY DISORDER, UNSPECIFIED 04/02/2017 PHOEBE MASON MD Ot H65.90 UNSPECIFIED NONSUPPURATIVE OTITIS MEDIA, 04/02/2017 PHOEBE MASON MD Ot K21.9 GASTRO-ESOPHAGEAL REFLUX DISEASE WITHOUT 04/02/2017 PHOEBE MASON MD Ot R42 DIZZINESS AND GIDDINESS 05/21/2017 PHOEBE MASON MD Ot E86.0 DEHYDRATION 05/21/2017 PHOEBE MASON MD Ot F32.9 MAJOR DEPRESSIVE DISORDER, SINGLE EPISOD 05/21/2017 PHOEBE MASON MD Ot F41.9 ANXIETY DISORDER, UNSPECIFIED 05/21/2017 PHOEBE MASON MD, Ot H65.91 UNSPECIFIED NONSUPPURATIVE OTITIS MEDIA, 05/21/2017 PHOEBE MASON MD, Ot K21.9 GASTRO-ESOPHAGEAL REFLUX DISEASE WITHOUT 05/21/2017 PHOEBE MASON MD, Ot R42 DIZZINESS AND GIDDINESS Procedures There is no data. Results Test Result Range Comprehensive metabolic panel - 12/19/16 21:37 Serum or plasma sodium measurement (moles/volume) 139 mmol/L 135-145 Serum or plasma potassium measurement (moles/volume) 3.7 mmol/L 3.6-5.0 Serum or plasma chloride measurement (moles/volume) 103 mmol/L 98-107 Carbon dioxide 23 mmol/L 21-32 Serum or plasma anion gap determination (moles/volume) 13 mmol/L 5-14 Serum or plasma urea nitrogen measurement (mass/volume) 11 mg/dL 7-18 Serum or plasma creatinine measurement (mass/volume) 0.99 mg/dL 0.60-1.30 Serum or plasma urea nitrogen/creatinine mass ratio 11 NRG Serum or plasma creatinine measurement with calculation of estimated glomerular filtration rate > NRG Serum or plasma glucose measurement (mass/volume) 112 mg/dL 70-105 Serum or plasma calcium measurement (mass/volume) 9.7 mg/dL 8.5-10.1 Serum or plasma total bilirubin measurement (mass/volume) 0.7 mg/dL 0.1-1.0 Serum or plasma alkaline phosphatase measurement (enzymatic activity/volume) 87 U/L 40-136 Serum or plasma aspartate aminotransferase measurement (enzymatic activity/ volume) 18 U/L 5-34 Serum or plasma alanine aminotransferase measurement (enzymatic activity/volume ) 16 U/L 0-55 Serum or plasma protein measurement (mass/volume) 7.9 g/dL 6.4-8.2 Serum or plasma albumin measurement (mass/volume) 4.8 g/dL 3.2-4.5 Complete urinalysis with reflex to culture - 12/19/16 22:12 Urine color determination YELLOW NRG Urine clarity determination CLEAR NRG Urine pH measurement by test strip 6 5-9 Specific gravity of urine by test strip 1.010 1.016- 1.022 Urine protein assay by test strip, semi-quantitative NEGATIVE NEGATIVE Urine glucose detection by automated test strip NEGATIVE NEGATIVE Erythrocytes detection in urine sediment by light microscopy NEGATIVE NEGATIVE Urine ketones detection by automated test strip NEGATIVE NEGATIVE Urine nitrite detection by test strip NEGATIVE NEGATIVE Urine total bilirubin detection by test strip NEGATIVE NEGATIVE Urine urobilinogen measurement by automated test strip (mass/volume) NORMAL NORMAL Urine leukocyte esterase detection by dipstick NEGATIVE NEGATIVE Automated urine sediment erythrocyte count by microscopy (number/high power field) NONE NRG Automated urine sediment leukocyte count by microscopy (number/high power field ) [HPF] NRG Bacteria detection in urine sediment by light microscopy NEGATIVE NRG Crystals detection in urine sediment by light microscopy NONE NRG Casts detection in urine sediment by light microscopy NONE NRG Mucus detection in urine sediment by light microscopy NEGATIVE NRG Complete urinalysis with reflex to culture NO NRG Encounters ACCT No. Visit Date/Time Discharge Status Pt. Type Provider Facility Loc./Unit Complaint [id number] 04/21/2014 13:03:00 04/21/2014 23:59:59 CLS Outpatient SHAQUILLE BECKWITH APRN [id number] 01/18/2017 13:14:00 01/18/2017 14:30:00 DIS Emergency PHOEBE MASON MD Via [facility] ER DIZZINESS, LOW BP [id number] 12/25/2016 10:45:00 12/25/2016 23:59:59 CLS Outpatient MADDY KING MD [facility] RAD LT FLANK PAIN, PELVIC PAIN [id number] 12/19/2016 21:32:00 12/19/2016 23:20:00 DIS Emergency KATT ZAFAR APRN [facility] ER HIGH BLOOD PRESSURE/HIGH HEART RATE/DIZZINESS [id number] 02/09/2016 07:29:00 02/09/2016 23:59:59 CLS Outpatient MIGUE CLIFFORD, TAI Renteria [facility] CARD PALPATATION, ANXIETY, ACID REFLUX,CHEST PAIN [id number] 05/28/2018 09:30:00 05/28/2018 23:59:59 [facility]
[2018-06-10] MEDS ORDERED: NS IV 1000 ML 1,000 ML IV ONE (04:09)
[2018-06-10] MEDS ORDERED: ASPIRIN 81 MG CHEW (CHILDREN'S ASA) PO ONE (04:15)
[2018-06-10 04:17] LABS: BASOPHILS % (AUTO) 1 % (0-10); EOSINOPHILS # (AUTO) 0.3 10^3/uL (0.0-0.3); EOSINOPHILS % (AUTO) 5 % (0-10); HEMATOCRIT 45 % (40-54); HEMOGLOBIN 15.7 G/DL (13.3-17.7); LYMPHOCYTES # (AUTO) 2.1 X 10^3 (1.0-4.0); LYMPHOCYTES % (AUTO) 37 % (12-44); MEAN CORPUSCULAR HEMOGLOBIN 30 PG (25-34); MEAN CORPUSCULAR HGB CONC 35 G/DL (32-36); MEAN CORPUSCULAR VOLUME 84 FL (80-99); MONOCYTES # (AUTO) 0.5 X 10^3 (0.0-1.0); MONOCYTES % (AUTO) 10 % (0-12); NEUTROPHILS # (AUTO) 2.7 X 10^3 (1.8-7.8); NEUTROPHILS % (AUTO) 49 % (42-75); PLATELET COUNT 158 10^3/uL (130-400); RED BLOOD COUNT 5.33 10^6/uL (4.35-5.85); RED CELL DISTRIBUTION WIDTH 13.4 % (10.0-14.5); WHITE BLOOD COUNT 5.7 10^3/uL (4.3-11.0)
[2018-06-10 04:28] LABS: PROTHROMBIN TIME PATIENT 12.8 SEC (12.2-14.7)
[2018-06-10] MEDS ORDERED: LORazepam INJ 2 MG/ML (ATIVAN) VIAL IVP ONE (04:30)
[2018-06-10 04:36] LABS: ALANINE AMINOTRANSFERASE 29 U/L (0-55); ALBUMIN 4.4 GM/DL (3.2-4.5); ALKALINE PHOSPHATASE 93 U/L (40-136); BILIRUBIN,TOTAL 0.5 MG/DL (0.1-1.0); BUN/CREATININE RATIO 18; CALCIUM 9.4 MG/DL (8.5-10.1); CARBON DIOXIDE 24 MMOL/L (21-32); CHLORIDE 106 MMOL/L (98-107); CREATININE SERUM 1.01 MG/DL (0.60-1.30); GFR ESTIMATED > 60; GLUCOSE 121 MG/DL (70-105); MAGNESIUM 2.5 MG/DL (1.8-2.4); POTASSIUM 3.6 MMOL/L (3.6-5.0); SODIUM 141 MMOL/L (135-145); TOTAL PROTEIN 7.3 GM/DL (6.4-8.2)
[2018-06-10 04:42] LABS: MYOGLOBIN SERUM 19.4 NG/ML (10.0-92.0)
--- NOTE | 2018-06-10 05:24 | ED General ---
General Chief Complaint: Psych/Social Disorder Stated Complaint: CP Nursing Triage Note: SWEATING/PALPATATIONS, "LUMP IN THROAT" UPON AWAKENING. Nursing Sepsis Screen: No Definite Risk Source of Information: Patient Exam Limitations: No Limitations History of Present Illness Date Seen by Provider: Jun 10, 2018 Time Seen by Provider: 03:58 Initial Comments This 32-year-old young man presents to the emergency room with multiple vague complaints. He woke up this morning with sweats, dry mouth and a racing heart. He felt a "lump in my throat" with exertion. He states he may have had a little shortness of breath and lightheadedness. He reports seeing "tracers" in his vision when he moves his hand in front of his face. He is accustomed to seeing this when he misses doses of his Zoloft. However, he denies missing any doses recently. He reports checking his blood pressure at home and it was 156/ 100. He also checked his blood sugar which was normal. He has seen Dr. William in the past for hypertension. Patient is anxious and admits to a history of anxiety. He did not take any Ativan this morning because he was afraid of masking symptoms. Allergies and Home Medications Allergies Coded Allergies: acetazolamide (Unverified Adverse Reaction, Unknown, 12/19/16) risperidone (Unverified Adverse Reaction, Unknown, 12/19/16) sulfamethoxazole (Unverified Adverse Reaction, Unknown, 12/19/16) trimethoprim (Unverified Adverse Reaction, Unknown, 12/19/16) Home Medications Fluticasone Propionate 16 Gm [place].susp, 2 SPR NSEACH DAILY, (Reported) Loratadine 10 Mg Tablet, 10 MG PO DAILY, (Reported) Lorazepam 1 Mg Tablet, 0.5 MG PO PRN, (Reported) Omeprazole 40 Mg Capsule.dr, 40 MG PO DAILY, (Reported) Ranitidine HCl 300 Mg Capsule, 300 MG PO BID PRN for reflux, (Reported) Sertraline HCl 100 Mg Tablet, 100 MG PO DAILY, (Reported) Patient Home Medication List Home Medication List Reviewed: Yes Review of Systems Review of Systems Constitutional: see HPI EENTM: no symptoms reported Respiratory: see HPI Cardiovascular: see HPI Gastrointestinal: no symptoms reported Genitourinary: no symptoms reported Musculoskeletal: no symptoms reported Skin: no symptoms reported Psychiatric/Neurological: See HPI Hematologic/Lymphatic: No Symptoms Reported Immunological/Allergic: no symptoms reported Past [id number]-[id number] Hx Past Med/Social Hx: Reviewed Nursing Past Med/Soc Hx Patient Social History Alcohol Use: Denies Use Recreational Drug Use: No Smoking Status: Never a Smoker 2nd Hand Smoke Exposure: No Recent Foreign Travel: No Contact w/Someone Who Travel: No Recent Infectious Disease Expo: No Recent Hopitalizations: No Physical Abuse: No Sexual Abuse: No Mistreated: No Fear: No Immunizations Up To Date Tetanus Booster (TDap): Unknown Seasonal Allergies Seasonal Allergies: Yes Past Medical History Surgeries: Yes (wisdom teeth) Respiratory: No Cardiac: Yes (RBBB) Neurological: No Genitourinary: No Gastrointestinal: Yes Gastroesophageal Reflux, Hiatal Hernia, Irritable Bowel Musculoskeletal: No Endocrine: No HEENT: No Cancer: No Psychosocial: Yes Anxiety, Depression Integumentary: No Blood Disorders: No Physical Exam Vital Signs Vital Signs - First Documented 06/10/18 03:54 Temp 97.3 Pulse 92 Resp 18 B/P (MAP) 146/92 (110) Pulse Ox 98 O2 Delivery Room Air Capillary Refill : Less Than 3 Seconds Height, Weight, BMI Height: 6'0" Weight: 175lbs. oz. 79.051344lv; BMI Method:Stated General Appearance: No Apparent Distress, Anxious HEENT: Other (mouth is dry) Progress/Results/Core Measures Suspected Sepsis Recent Fever Within 48 Hours: No Infection Criteria Present: None New/Unexplained Altered Menta: No Sepsis Screen: No Definite Risk SIRS Temperature:97.3 Pulse: 92 Respiratory Rate: 18 Laboratory Tests 06/10/18 04:03: White Blood Count 5.7 Blood Pressure 146 /92 Mean: 110 Laboratory Tests 06/10/18 04:03: Creatinine 1.01, INR Comment 1.0, Platelet Count 158, Total Bilirubin 0.5 Results/Orders Lab Results Laboratory Tests Test 06/10/18 04:03 Range/Units White Blood Count 5.7 4.3-11.0 10^3/uL Red Blood Count 5.33 4.35-5.85 10^6/uL Hemoglobin 15.7 13.3-17.7 G/DL Hematocrit 45 40-54 % Mean Corpuscular Volume 84 80-99 FL Mean Corpuscular Hemoglobin 30 25-34 PG Mean Corpuscular Hemoglobin Concent 35 32-36 G/DL Red Cell Distribution Width 13.4 10.0-14.5 % Platelet Count 158 130-400 10^3/uL Mean Platelet Volume 10.0 7.4-10.4 FL Neutrophils (%) (Auto) 49 42-75 % Lymphocytes (%) (Auto) 37 12-44 % Monocytes (%) (Auto) 10 0-12 % Eosinophils (%) (Auto) 5 0-10 % Basophils (%) (Auto) 1 0-10 % Neutrophils # (Auto) 2.7 1.8-7.8 X 10^3 Lymphocytes # (Auto) 2.1 1.0-4.0 X 10^3 Monocytes # (Auto) 0.5 0.0-1.0 X 10^3 Eosinophils # (Auto) 0.3 0.0-0.3 10^3/uL Basophils # (Auto) 0.0 0.0-0.1 10^3/uL Prothrombin Time 12.8 12.2-14.7 SEC INR Comment 1.0 0.8-1.4 Activated Partial Thromboplast Time 28 24-35 SEC D-Dimer < 0.27 0.00-0.49 UG/ML Sodium Level 141 135-145 MMOL/L Potassium Level 3.6 3.6-5.0 MMOL/L Chloride Level 106 98-107 MMOL/L Carbon Dioxide Level 24 21-32 MMOL/L Anion Gap 11 5-14 MMOL/L Blood Urea Nitrogen 18 7-18 MG/DL Creatinine 1.01 0.60-1.30 MG/DL Estimat Glomerular Filtration Rate > 60 BUN/Creatinine Ratio 18 Glucose Level 121 H 70-105 MG/DL Calcium Level 9.4 8.5-10.1 MG/DL Corrected Calcium 9.1 8.5-10.1 MG/DL Magnesium Level 2.5 H 1.8-2.4 MG/DL Total Bilirubin 0.5 0.1-1.0 MG/DL Aspartate Amino Transf (AST/SGOT) 23 5-34 U/L Alanine Aminotransferase (ALT/SGPT) 29 0-55 U/L Alkaline Phosphatase 93 40-136 U/L Myoglobin 19.4 10.0-92.0 NG/ML Troponin I < 0.30 <0.30 NG/ML C-Reactive Protein High Sensitivity 0.05 0.00-0.50 MG/DL Total Protein 7.3 6.4-8.2 GM/DL Albumin 4.4 3.2-4.5 GM/DL My Orders Orders - MANE REYES MD Cbc With Automated Diff (06/10/18 04:09) Magnesium (06/10/18 04:09) Chest 1 View, Ap/Pa Only (06/10/18 04:09) Ekg Tracing (06/10/18 04:09) Cardiac Profile 1 (06/10/18 04:09) Comprehensive Metabolic Panel (06/10/18 04:09) Myoglobin Serum (06/10/18 04:09) Protime With Inr (06/10/18 04:09) Partial Thromboplastin Time (06/10/18 04:09) O2 (06/10/18 04:09) Monitor-Rhythm Ecg Trace Only (06/10/18 04:09) Lipid Panel (06/11/18 06:00) Aspirin Chewable Tablet (Baby Aspirin Ch (06/10/18 04:15) Saline Lock/Iv-Start (06/10/18 04:09) Saline Lock/Iv-Start (06/10/18 04:09) Ns Iv 1000 Ml (Sodium Chloride 0.9%) (06/10/18 04:09) Lorazepam Injection (Ativan Injection) (06/10/18 04:30) Hs C Reactive Protein (06/10/18 04:48) Fibrin Degradation Products (06/10/18 04:48) Medications Given in ED Current Medications Medications Dose Ordered Sig/Ko Route Start Time Stop Time Status Last Admin Dose Admin Aspirin 324 mg ONCE ONCE PO 06/10/18 04:15 06/10/18 04:16 DC 06/10/18 04:15 324 MG Lorazepam 0.5 mg ONCE ONCE IVP 06/10/18 04:30 06/10/18 04:31 DC 06/10/18 04:36 0.5 MG Sodium Chloride 1,000 ml @ 0 mls/hr Q0M ONCE IV 06/10/18 04:09 06/10/18 04:12 DC 06/10/18 04:15 0 MLS/HR Vital Signs/I&O 06/10/18 06/10/18 03:54 04:19 Temp 97.3 Pulse 92 Resp 18 B/P (MAP) 146/92 (110) Pulse Ox 98 98 O2 Delivery Room Air Room Air Capillary Refill : Less Than 3 Seconds Blood Pressure Mean: 110 Progress Note : Progress Note Cardiac workup was pursued. EKG was unremarkable. Labs were remarkable. Patient was hydrated with a liter of IV fluid. He was given Ativan 0.5 mg by IV route. He still had tachycardia after these measures. D-dimer is CRP were added for further evaluation. Both were negative. It was noted that heart rate did decrease to the 90s when patient was resting quietly. Patient was ultimately discharged home for outpatient follow-up. ECG Initial ECG Impression Date: Jun 10, 2018 Initial ECG Impression Time: 03:58 Initial ECG Rate: 87 Initial ECG Rhythm: Normal Sinus Initial ECG Intervals: Normal Initial ECG Impression: Normal Comment Normal sinus rhythm with no ST elevation or depression. No abnormal intervals or axis deviation. Diagnostic Imaging Diagonstic Imaging: Xray Plain Films/CT/US/NM/MRI: chest Comments Chest x-ray viewed by me. Report not yet available. No acute abnormalities appreciated. Departure Impression Primary Impression: Palpitations Additional Impressions: Sinus tachycardia Anxiety Disposition: 01 HOME, SELF-CARE Condition: Improved Departure-Patient Inst. Decision time for Depature: 05:22 Referrals: HEMANT ARMSTRONG DO (PCP/Family) Primary Care Physician Patient Instructions: Anxiety, Adult (DC), Palpitations Add. Discharge Instructions: Follow-up with Dr. Armstrong and Dr. William as soon as possible. If you feel these abnormal sensations in the future, you may try Ativan. If symptoms are severe or do not improve with Ativan, return to care. Stay well-hydrated. All discharge instructions reviewed with patient and/or family. Voiced understanding. Copy Copies To 1: HEMANT ARMSTRONG DO Copies To 2: TAI WILLIAM MD, JOSHUA T MD Jun 10, 2018 05:24
[2018-06-10 05:32] VITALS: BP 122/75
--- NOTE | 2018-06-10 05:48 | Diagnostic Imaging Report ---
CHEST 1 VIEW, AP/PA ONLY Indication: Sweating and palpitations. Comparison: None available. Findings: No focal airspace disease in the visualized lungs. Please note that the posterior lower lobes are poorly evaluated by portable radiography. No pleural effusion or pneumothorax. Normal cardiomediastinal silhouette. Impression: No acute cardiopulmonary process by portable radiography. Dictated by: Dictated on workstation # [id number]
== END 2018-06-10 05:26 | disposition home or self-care (01) ==
LOC: EDUNIT# 03:48 → ER 03:48
DX: R00.2 Palpitations (principal); F41.9 Anxiety disorder, unspecified; R00.0 Tachycardia, unspecified; K21.9 Gastro-esophageal reflux disease without esophagitis; F32.9 Major depressive disorder, single episode, unspecified; Z87.19 Personal history of other diseases of the digestive system; Z88.2 Allergy status to sulfonamides; Z88.1 Allergy status to other antibiotic agents; Z88.8 Allergy status to other drugs, medicaments and biological substances
CPT/HCPCS: 36415; 71045; 80053; 83735; 83874; 84484; 85025; 85379; 85610; 85730; 86141; 93005; 93041; 96374